=== PATIENT | male | born 1975 | race Caucasian/White ===

== ENCOUNTER 2020-05-27 14:15 | Outpatient (REF) | payer MEDICAID, SELFPAY ==
--- NOTE | 2020-05-27 14:23 | XR_ITS ---
EXAMINATION:XR foot RT min 3V VIEWS ACQUIRED: Frontal lateral and oblique CLINICAL INFORMATION: Reason for Exam UNSPECIFIED INJURY OF LEFT FOOT, INITIAL ENCOUNTER COMPARISON: None available at the time of this dictation. FINDINGS: There is no evidence of acute fracture or dislocation. Intertarsal, tarsometatarsal, metatarsophalangeal and interphalangeal joints are intact. Surrounding soft tissues is normal. , There is a small inferior calcaneal spur. XR/XR foot RT min 3V IMPRESSION: Small inferior calcaneal spur. No fracture.
== END 2020-05-27 14:16 | disposition home or self-care (01) ==
LOC: HO.XRAY 14:15
PROVIDERS: PCP Internal Medicine; Visit Provider Emergency Medicine
DX: M79.673 Pain in unspecified foot (principal); S99.922A Unspecified injury of left foot, initial encounter; X58.XXXA Exposure to other specified factors, initial encounter; Y93.9 Activity, unspecified; Y92.9 Unspecified place or not applicable; Y99.9 Unspecified external cause status
CPT/HCPCS: 73630